=== PATIENT | female | born 1950 | race Two or more races ===

== ENCOUNTER 2021-01-18 07:38 | Emergency (ER) | payer OTHER, MEDICARE ==
[2021-01-18] MEDS ORDERED: IBUPROFEN 400 MG TABLET (FP) PO ONE ×2 (07:49→08:06)
[2021-01-18 08:06] VITALS: BP 143/81; PULSE 55; TEMP 97.9; BMI 20.8
== END 2021-01-18 09:30 | disposition home or self-care (01) ==
LOC: FER 07:38
DX: S83.91XA Sprain of unspecified site of right knee, initial encounter (principal)
CPT/HCPCS: 73562-TC-RT-FY; 99283-25

== ENCOUNTER 2021-02-16 16:45 | Emergency (ER) | payer OTHER, MEDICARE ==
[2021-02-16] MEDS ORDERED: ACETAMINOPHEN 325 MG TABLET (FP) PO ONE (16:57)
[2021-02-16 17:15] VITALS: BP 197/129; PULSE 86; TEMP 98.1; BMI 21.4
[2021-02-16] MEDS ORDERED: ACETAMINOPHEN 325 MG TABLET (FP) ONE (17:15)
== END 2021-02-16 18:10 | disposition home or self-care (01) ==
LOC: FER 16:45
DX: I10 Essential (primary) hypertension (principal)
CPT/HCPCS: 99283-25

== ENCOUNTER 2022-04-03 17:33 | Emergency (ER) | payer OTHER, MEDICARE ==
[2022-04-03 18:08] VITALS: RESP 18; TEMP 99.3; BMI 21.0
[2022-04-03 19:23] VITALS: BP 144/90; PULSE 86
== END 2022-04-03 19:38 | disposition home or self-care (01) ==
LOC: FER 17:33
DX: I10 Essential (primary) hypertension (principal)
CPT/HCPCS: 93005; 99284-25